=== PATIENT | male | born 1995 | race Caucasian/White ===

== ENCOUNTER 2025-01-10 22:19 | Emergency (ER) | payer OTHER, SELFPAY ==
[2025-01-10 22:38] VITALS: BP 172/120; PULSE 110; TEMP 36.9; O2SAT 98; BMI 27.3
--- OUTSIDE RECORDS SUMMARY | 2025-01-10 22:39 | XMS_ITS | Encounter Summary ---
Author Organization [facility] Address [address] [place] [address] Care Team Providers Care Body And Frame Technician Name Role Phone Abdi Cabrera MD Primary Care Provider [phone] Abdi Cabrera MD Primary Care Provider [phone] Encounter Details Date Type Department Care Team ([facility] Contact Info) Description 07/01/2023 Orders Only [facility] [address] [place] [phone] Abdi Cabrera MD [address] [place] [address] Social History Tobacco Use Types Packs/Day Years Used Date Smoking Tobacco: Never Smokeless Tobacco: Never Sex and Gender Information Value Date Recorded Sex Assigned at Not on file Legal Sex Male 6:48 PM EDT Gender Identity Not on file Sexual Orientation Not on file documented as of this encounter Functional Status * Over the past 2 weeks, how often have you been bothered by any of the following problems? Question Answer Date of Assessment Author Little interest or pleasure in doing things Nearly every day 07/01/2023 1:36 PM YESSI BOWLING Feeling down, depressed, or hopeless Several days 07/01/2023 1:36 PM YESSI BOWLING Patient Health Questionnaire -2 Score 4 07/01/2023 1:36 PM YESSI BOWLING * Question Answer Date of Assessment Author Trouble falling or staying asleep, or sleeping too much Nearly every day 07/01/2023 1:36 PM YESSI BOWLING Feeling tired or having little energy Nearly every day 07/01/2023 1:36 PM EST YESSI WARREN Poor appetite or overeating More than person lf the days 07/01/2023 1:36 PM EST YESSI WARREN Feeling bad about yourself - or that you are a failure or have let yourself or your family down Several days 07/01/2023 1:36 PM YESSI BOWLING Trouble concentrating on things, such as reading the newspaper or watching television More than half the days 07/01/2023 1:36 PM YESSI BOWLING Moving or speaking so slowly that other people could have noticed? Or the opposite - being so fidgety or restless that you have been moving around a lot more than usual. More than half the days 07/01/2023 1:36 PM YESSI BOWLING Thoughts that you would be better off or hurting yourself in some way Not at all 07/01/2023 1:36 PM EST YESSI WARREN Patient Health Questionnaire-9 Score 17 07/01/2023 1:36 PM YESSI BOWLING documented as of this encounter Plan of Treatment Upcoming Encounters Date Type Department Care Team (Late st Contact Info) Description 03/07/2025 8:30 AM EDT Office Visit [facility] [address] [place] [address] Abdi Cabrera MD [address] [place] [phone] documented as of this encounter Visit Diagnoses Not on filedocumented in this encounter Additional Health Concerns Assessment Noted Time PHQ-9 Depression Total Score: 17 024 1:36 PM EST documented as of this encounter Care Teams Body And Frame Technician Relationship Specialty Start Date End Date Abdi Cabrera MD PCP - General Family Medicine 01/29/23 07/29/23 Abdi Cabrera MD [address] [place] [phone] PCP - General Family Medicine 07/30/23 documented as of this encounter
--- OUTSIDE RECORDS SUMMARY | 2025-01-10 22:39 | XMS_ITS | Clinical Summary ---
Author Organization [facility] Healthcare Address [address] [place] [address] Care Team Providers Care Portfolio Consultant Name Role Phone Abdi Cabrera MD Primary Care Provider [phone] Allergies Active Allergy Reactions Criticality Noted Date Comments Cefuroxime Rash Low 05/10/2023 Cephalosporins Rash Low 05/10/2023 Medications hydrOXYzine HCl (Atarax) 25 MG tablet Take 25 mg by mouth 4 (four) times a day as needed for itching Active doxepin (SINEquan) 75 MG capsuleIndicatio ns:Primary insomnia Take 1 capsule (75 mg) by mouth at bedtime 30 capsule 5 07/01/2023 Active lamoTRIgine (LaMICtal) 150 MG tabletIndication s:Generalized anxiety disorder Take 1 tablet (150 mg) by mouth at bedtime 30 tablet 02/01/2024 02/01/20 25 Active busPIRone (Buspar) 30 MG tabletIndication s:Generalized anxiety disorder Take 1 tablet (30 mg) by mouth in the morning and 1 tablet (30 mg) before bedtime. 60 tablet 08/08/2024 Active metoprolol succinate XL (Toprol-XL) 25 MG 24 hr tabletIndication s:Sinus tachycardia Take 1 tablet (25 mg) by mouth Daily Do not crush or chew. 30 tablet 10/10/2024 Active venlafaxine XR (Effexor XR) 150 MG 24 hr capsuleIndicatio ns:Mild recurrent major depression,Gener alized anxiety disorder Take 1 capsule (150 mg) by mouth Daily Do not crush or chew. 30 capsule 10/10/2024 Active QUEtiapine (SEROquel) 25 MG tabletIndication s:Moderate recurrent major depression (HCC) Take 1 tablet (25 mg) PO in the morning and 2 tablets (50 mg) before bedtime 90 tablet 5 12/04/2024 Active Active Problems Problem Noted Date Diagnosed Date Sinus tachycardia 06/06/2024 Assessment & Plan (09/04/2024 1:45 PM EDT): Symptoms improved with metoprolol and continue. Assessment & Plan (06/06/2024 10:51 AM EST): Continued heart racing and symptoms. Start metoprolol. Elevated blood-pressure read ing without diagnosis of hypertension 01/13/2024 Assessment & Plan (12/04/2024 9:27 AM EDT): BP elevated in office and need to monitor at home. Discussed DASH diet. Assessment & Plan (09/04/2024 1:44 PM EDT): BP elevated in office but normal at home and monitor PRN. Assessment & Plan (06/06/2024 10:50 AM EST): BP elevated in office but normal at home and monitor PRN. Assessment & Plan (01/13/2024 9:46 AM EDT): BP elevated and need to monitor PRN. If remains elevated away from office will need to treat for HTN. Primary insomnia 05/11/2023 Assessment & Plan (12/04/2024 9:27 AM EDT): Sleeping okay with medication and continue. Assessment & Plan (09/04/2024 1:45 PM EDT): Sleeping okay with medication and continue. Assessment & Plan (06/06/2024 10:51 AM EST): Sleeping okay with medication and continue. Assessment & Plan (01/13/2024 9:47 AM EDT): Sleeping okay with medication and continue. Assessment & Plan (11/03/2023 8:59 AM EDT): Not sleeping well and start seroquel. Assessment & Plan (07/30/2023 9:35 AM EST): Sleeping well with doxepin and continue. Assessment & Plan (07/01/2023 2:06 PM EST): Not sleeping well and increase doxepin. Assessment & Plan (05/11/2023 10:01 AM EST): Sleeping well with doxepin and continue. Generalized anxiety disorder 05/06/2023 Assessment & Plan (12/04/2024 9:27 AM EDT): Symptoms persist and increased seroquel. Continue effexor and lamictal. Continue counseling. Use hydroxyzine PRN. Assessment & Plan (09/04/2024 1:44 PM EDT): Symptoms persist and increased seroquel. Continue effexor and lamictal. Continue counseling. Use hydroxyzine PRN. Assessment & Plan (06/06/2024 10:51 AM EST): Symptoms stable with medication and continue. Continue counseling. Use hydroxyzine PRN. Assessment & Plan (01/13/2024 9:47 AM EDT): Symptoms improved with medication and continue. Use hydroxyzine PRN. Assessment & Plan (11/03/2023 8:59 AM EDT): Continues to have severe symptoms and start seroquel as prescribed. Continue lamictal and effexor. Continue buspar and use hydroxyzine PRN. Recommend try counseling. Assessment & Plan (07/30/2023 9:34 AM EST): Symptoms improved with medication change and continue at current dose. If symptoms worsen can increase in future. Use hydroxyzine PRN. Assessment & Plan (07/01/2023 2:06 PM EST): Continues to have symptoms and add abilify. Continue effexor and lamictal. Use hydroxyzine PRN. Would benefit from counseling. Assessment & Plan (05/11/2023 10:01 AM EST): Continued symptoms and increase effexor. Continue lamictal and buspar at current dose. Warned will take 2-3 weeks to notice improvement in mood. Use hydroxyzine PRN. Moderate recurrent major depression 05/06/2023 Assessment & Plan (12/04/2024 9:27 AM EDT): Symptoms persist and increased seroquel. Continue effexor and lamictal. Continue counseling. Assessment & Plan (09/04/2024 1:44 PM EDT): Symptoms persist and increased seroquel. Continue effexor and lamictal. Continue counseling. Assessment & Plan (06/06/2024 10:51 AM EST): Symptoms stable with medication and continue. Continue counseling. Assessment & Plan (01/13/2024 9:47 AM EDT): Symptoms improved with medication and continue. Assessment & Plan (11/03/2023 8:59 AM EDT): Continues to have severe symptoms and start seroquel as prescribed. Continue lamictal and effexor. Recommend try counseling. Assessment & Plan (07/30/2023 9:34 AM EST): Symptoms improved with medication change and continue at current dose. If symptoms worsen can increase in future. Assessment & Plan (07/01/2023 2:05 PM EST): Continues to have symptoms and add abilify. Continue effexor and lamictal. Would benefit from counseling. Assessment & Plan (05/11/2023 10:00 AM EST): Continued symptoms and increase effexor. Continue lamictal at current dose. Warned will take 2-3 weeks to notice improvement in mood. Resolved Problems Problem Noted Date Diagnosed Date Resolved Date Infective otitis externa 05/06/202304/2023 Panic attack 05/06/2023 05/11/2023 Social anxiety disorder 05/06/202304/30 Tinnitus of left ear 05/06/2023 023 Encounters Date Type Department Care Team Description 12/04/2024 8:30 AM EDT Office Visit [facility] [address] [place] [address] Abdi Cabrera MD Moderate recurrent major depression (HCC) (Primary Dx); Generalized anxiety disorder ; Primary insomnia; Elevated blood-pressure reading without diagnosis of hypertension 12/04/2024 Bamboo flowsheet [facility] [address] [place] [address] Abdi Cabrera MD 10/10/2024 Refill [facility] [address] [facility] [address] [place] [phone] Abdi Cabrera MD Mild recurrent major depression ; Generalized anxiety disorder from Last 3 Months Immunizations Immunization Administration Dates Next Due DTP 03/23/1994,01/19/1994 DTP / HiB 06/08/1994 DTaP, Unspecified 08/16/1998,02/22/1995 Hep B, Adolescent or Pediatric 06/08/1994,1993,01/19/1994 HiB, unspecified 02/22/1995,03/23/1994, 4 Influenza, seasonal, injecta ble, preservative free 03/15/2014 MMR 08/16/1998,02/22/1995 OPV 08/16/1998, 5,03/23/1994,1993 Pfizer Purple Cap SARS-CoV-2 Vaccination 03/07/2021,02/02/2021 Tdap 01/14/2017 Family History Relation Name Status Comments Father Alive Mother Alive Social History Tobacco Use Types Packs/Day Years Used Date Smoking Tobacco: Never Smokeless Tobacco: Never Tobacco Cessation:Counseling Given: Not Answered Sex and Gender Information Value Date Recorded Sex Assigned at Not on file Legal Sex Male 6:48 PM EDT Gender Identity Not on file Sexual Orientation Not on file Last Filed Vital Signs Vital Sign Reading Time Taken Comments Blood Pressure 160/86 12/04/2024 8:43 AM EDT Pulse 41 12/04/2024 8:43 AM EDT Temperature 36.6 C (97.8 F) 12/04/2024 8:43 AM EDT Respiratory Rate 18 12/04/2024 8:43 AM EDT Oxygen Saturation 99% 12/04/2024 8:43 AM EDT Inhaled Oxygen Concentration - - Weight 88.9 kg (196 lb) 12/04/2024 8:43 AM EDT Height 175.3 cm (5' 9 ) 12/04/2024 8:43 AM EDT Body Mass Index 28.94 12/04/2024 8:43 AM EDT Plan of Treatment Upcoming Encounters Date Type Department Care Team ([facility] st Contact Info) Description 03/07/2025 8:30 AM EDT Office Visit [facility] [address] [place] [address] Abdi Cabrera MD [address] [place] [address] Health Maintenance Due Date Last Done Comments Influenza Vaccine (#1) 2025 03/15/2014 Goals Goal Patient Goal Type Associated Problems Recent Progress Patient-Stated? Author Help patient manage antidepressant medication Care Plan Patient on antidepressant monitoring plan Katie Ramírez Additional Health Concerns Active Problems Noted Date Diagnosed Date Patient on antidepressant monitoring plan 2023 Insurance [employer] Care Teams Portfolio Consultant Relationship Specialty Start Date End Date Abdi Cabrera MD [address] [place] [address] PCP - General Family Medicine 07/30/23
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
[2025-01-11 02:30] VITALS: BP 161/110; PULSE 108; O2SAT 100
== END 2025-01-11 03:57 | disposition home or self-care (01) ==
PROVIDERS: Emergency Provider Internal Medicine; PCP Family Medicine
DX: S29.012A Strain of muscle and tendon of back wall of thorax, initial encounter (principal); S16.1XXA Strain of muscle, fascia and tendon at neck level, initial encounter; V49.40XA Driver injured in collision with unspecified motor vehicles in traffic accident, initial encounter
CPT/HCPCS: 72125; 72128; 99284